=== PATIENT | female | born 1945 | race Caucasian/White ===

== ENCOUNTER 2018-05-04 05:55 | Day surgery (SDC) | payer OTHER ==
[2018-05-03 10:11] LABS: Urine Bacteria FEW /hpf (None Seen); Urine Blood Negative /uL (Negative); Urine Specific Gravity 1.014 (1.001-1.035); Urine WBC 1 /hpf (0 - 5)
[2018-05-03 10:17] LABS: Basophils # (auto) 0.1 uL; Eosinophils # (auto) 0.2 uL; Lymphocytes # (auto) 2.2 uL; Neutrophils # (auto) 2.4 uL
[2018-05-03 10:21] LABS: Basophils % (auto) 0.9 % (0.0-2.0); Eosinophils % (auto) 2.9 % (0.0-7.0); Hematocrit 42.6 % (36.0-46.0); Hemoglobin 14.6 g/dL (12.2-16.2); Lymphocytes % (auto) 38.3 % (10.0-50.0); Mean Corpuscular Hemoglobin 34.5 pg (28.0-32.0); Mean Corpuscular Hgb Conc. 34.3 g/dL (32.0-36.0); Mean Corpuscular Volume 100.7 fL (80.0-100.0); Monocytes # (auto) 0.9 uL; Monocytes % (auto) 15.6 % (0.0-12.0); Neutrophils % (auto) 42.3 % (37.0-80.0); Nucleated Red Blood Cells % 0.1 %; Platelet Count (auto) 141 10^3/uL (140-450); Red Blood Cells 4.23 10^6/uL (4.0-5.20); Red Cell Distribution Width 13.5 % (11.8-14.3); White Blood Cell 5.7 10^3/uL (4.4-10.8)
[2018-05-03 10:25] LABS: BUN/Creatinine Ratio 16.3; Calcium 8.6 mg/dL (8.5-10.1); Potassium 4.2 mmol/L (3.5-5.1)
[2018-05-03 10:27] LABS: INR 0.98 (0.9-1.15); Partial Thromboplastin Time 31.5 sec (23.78-33.04); Prothrombin Time 10.5 sec (9.27-12.13)
[~2018-05-04] VITALS: Ht 157.5 cm; Wt 90.7 kg
[~2018-05-04 05:55] MED LIST: ACET-1080 PO; ATE50T PO; BIOT10CA OR; CHOL20007 PO; GLUCTAB8 OR; LEVO88TA4 PO; OMEG100078 PO; PRAV20TA3 PO
[2018-05-04] MEDS ORDERED: LIDOCAINE 1% HCL (LOCAL ANESTH.) INJ 20ML MDV ONE (07:03)
[2018-05-04] MEDS ORDERED: SUCCINYLCHOLINE CHLORIDE 20 MG/ML 10ML VIAL IV ONE (07:03)
[2018-05-04] MEDS ORDERED: ONDANSETRON HCL 4 MG/2 ML VIAL ONE (07:14)
[2018-05-04] MEDS ORDERED: MIDAZOLAM HCL 1MG/1ML-2 ML VIAL ONE (07:14)
[2018-05-04] MEDS ORDERED: SODIUM CHLORIDE LOCK 10 ML ONE (07:14)
[2018-05-04] MEDS ORDERED: fentaNYL CITRATE 100 MCG/2 ML VL ONE (07:14)
[2018-05-04] MEDS ORDERED: PROPOFOL 10 MG/ML 20 ML IV ONE ×2 (07:14→08:02)
[2018-05-04] MEDS ORDERED: ROCURONIUM 10MG/ML 10ML VIAL IV ONE (07:14)
[2018-05-04] MEDS ORDERED: ceFAZolin 1GM/50ML 50 ML IV ONE (07:26)
[2018-05-04] MEDS ORDERED: METOCLOPRAMIDE HCL 5MG/ml INJ 2ml VIAL IV ONE (07:30)
[2018-05-04] MEDS ORDERED: HYDROmorphone HCL 2 MG/ML VL IV PRN (07:30)
[2018-05-04 09:08] VITALS: BP 128/61
== END 2018-05-04 09:18 | disposition home or self-care (01) ==
LOC: SUR 05:55
PROVIDERS: ATTEND Urology
DX: N30.20 Other chronic cystitis without hematuria (principal); N30.80 Other cystitis without hematuria; I10 Essential (primary) hypertension; E03.9 Hypothyroidism, unspecified; E66.01 Morbid (severe) obesity due to excess calories; E78.5 Hyperlipidemia, unspecified; Z98.890 Other specified postprocedural states; Z87.891 Personal history of nicotine dependence; Z98.41 Cataract extraction status, right eye; Z79.891 Long term (current) use of opiate analgesic; Z79.899 Other long term (current) drug therapy; Z68.36 Body mass index [BMI] 36.0-36.9, adult; Z98.42 Cataract extraction status, left eye
CPT/HCPCS: 36415; 52204; 80048; 81001; 85025; 85610; 85730; 87086; J0330; J0690; J2001; J2250; J2405; J2704; J3010; J7030